=== PATIENT | female | born 1965 | race Caucasian/White ===

== ENCOUNTER → 2016-09-08 | Outpatient (CLI) | payer BC ==
[~2016-09-08] MED LIST: FLEXERIL10 MG PO; NORFLEX100 MG PO; VICODIN 5/500 505 MG PO
[2016-09-08 16:34] LABS: CHOLESTEROL 254 mg/dL (<200); HDL CHOLESTEROL 65 mg/dl (40-60); LDL CHOLESTEROL 166 mg/dL (9-159); TRIGLYCERIDES 117 mg/dl (<150); VLDL CHOLESTEROL 23 mg/dL (6-40)
== END | disposition home or self-care (01) ==
LOC: LAB 16:02
PROVIDERS: Family Medicine
DX: E78.00 Pure hypercholesterolemia, unspecified (principal)

== ENCOUNTER → 2018-09-16 | Outpatient (CLI) | payer BC ==
[2018-09-16 17:47] LABS: BUN 14 mg/dl (7-24); CHLORIDE 105 mmol/L (98-107); CHOLESTEROL 231 mg/dL (<200); CREATININE 0.86 mg/dL (0.55-1.02); POTASSIUM 3.7 mmol/L (3.5-5.1); SGOT/AST 20 IU/L (3-35); SGPT/ALT 26 U/L (12-78); SODIUM 138 mmol/L (136-145); TRIGLYCERIDES 121 mg/dl (<150); VLDL CHOLESTEROL 24 mg/dL (6-40)
[2018-09-16 17:49] LABS: ALKALINE PHOSPHATASE 76 U/L (45-117); HDL CHOLESTEROL 59 mg/dl (40-60); LDL CHOLESTEROL 148 mg/dL (9-159)
[2018-09-16 18:24] LABS: HEMATOCRIT 43.2 % (37.0-47.0); HEMOGLOBIN 13.8 g/dl (12.0-16.0); MEAN CELL VOLUME 92.9 fl (81.0-99.0); MEAN CORPUSCULAR HGB 29.7 pg (27.0-31.0); MEAN CORPUSCULAR HGB CONC 31.9 g/dl (33.0-37.0); MEAN PLATELET VOLUME 10.5 fl (9.6-12.3); RED BLOOD COUNT 4.65 10*6/uL (4.10-5.10); RED CELL DISTRI WIDTH 13.6 % (0-14.5); WHITE BLOOD COUNT 8.7 10*3/uL (4.8-10.8)
== END | disposition home or self-care (01) ==
LOC: LAB 16:40
PROVIDERS: Family Medicine
DX: E78.00 Pure hypercholesterolemia, unspecified (principal); E55.9 Vitamin D deficiency, unspecified

== ENCOUNTER → 2019-10-23 | Outpatient (CLI) | payer BC | END | disposition home or self-care (01) | LOC: US 14:27 | PROVIDERS: ATTEND Family Medicine | DX: R10.11 Right upper quadrant pain (principal) ==